=== PATIENT | male | born 1990 | race Caucasian/White ===

== ENCOUNTER 2018-04-10 14:14 | Inpatient (IN) | payer MEDICAID ==
[~2018-04-10] VITALS: Ht 177.8 cm; Wt 76.5 kg
[2018-04-10] MEDS ORDERED: HALOPERIDOL 5 MG TABLET PO PRN (18:00)
[2018-04-10] MEDS ORDERED: LORazepam 2 MG TABLET PO PRN (18:00)
[2018-04-10] MEDS ORDERED: ZOLPIDEM TARTRATE 10 MG TABLET PO PRN (18:00)
[2018-04-10 18:07] VITALS: BP 129/76
[2018-04-10 18:33] VITALS: BP 140/80
[2018-04-10] MEDS ORDERED: MAG HYDROX/AL HYDROX/SIMETH ES 30 ML SUSPENSION UDCUP PO PRN (21:15)
[2018-04-10] MEDS ORDERED: ACETAMINOPHEN 325 MG TABLET PO PRN (21:15)
[2018-04-10] MEDS ORDERED: MAGNESIUM HYDROXIDE SUSPENSION 30 ML UDCUP PO PRN (21:15)
[2018-04-10] MEDS ORDERED: PETROLATUM,WHITE 71 GM JELLY TP PRN (21:15)
[2018-04-10] MEDS ORDERED: LOPERAMIDE HCL 2 MG CAPSULE PO PRN (21:15)
[2018-04-10] MEDS ORDERED: CloNIDine HCL 0.1 MG TABLET PO PRN (21:15)
[2018-04-10] MEDS ORDERED: IBUPROFEN 400 MG TABLET PO PRN (21:15)
[2018-04-11 06:20] VITALS: BP 108/64
[2018-04-11 08:12] LABS: BASOPHILS % (AUTO) 0.5 % (0.0-2.0); EOSINOPHILS % (AUTO) 0.5 % (1.0-6.0); HEMATOCRIT 42.5 % (41-53); HEMOGLOBIN 14.7 g/dL (13.5-17.5); LYMPHOCYTES # (AUTO) 1.7 K/uL (1.0-4.8); LYMPHOCYTES % (AUTO) 27.7 % (22.0-44.0); MEAN CORPUSCULAR HGB CONC 34.7 G/dL (31.0-37.0); MEAN CORPUSCULAR VOLUME 89 fL (80-100); MONOCYTES # (AUTO) 0.5 K/uL (0.1-1.0); MONOCYTES % (AUTO) 8.3 % (2.0-9.0); NEUTROPHILS # (AUTO) 3.9 K/uL (1.8-7.7); PLATELET COUNT (AUTO) 231 K/uL (150-450); RED BLOOD CELL COUNT(AUTO) 4.76 MIL/uL (4.50-5.90); RED CELL DISTRIBUTION WIDTH 13.3 % (11.5-14.5)
[2018-04-11 08:42] LABS: HEMOGLOBIN A1C 5.3 % (4.5-6.2)
[2018-04-11 08:45] VITALS: BP 122/75
[2018-04-11 08:49] LABS: ALANINE AMINOTRANSFERASE 17 U/L (12-78); ALKALINE PHOSPHATASE 59 U/L (46-116); ANION GAP 8 mmol/L (8-16); ASPARTATE AMINOTRANSFERASE 21 U/L (15-37); BILIRUBIN,TOTAL 0.7 mg/dL (0.1-1.0); CALCIUM, TOTAL 8.9 mg/dL (8.8-10.5); CARBON DIOXIDE 31 mmol/L (22-29); CHLORIDE 104 mmol/L (98-107); CHOL/HDL RATIO 2.4 (4.2-7.3); CHOLESTEROL 115 mg/dL (131-200); CREATININE 0.89 mg/dL (0.60-1.30); FREE T4 (FREE THYROXINE) 1.11 ng/dL (0.76-1.46); GLOMERULAR FILTR. RATE CALC > 60 mL/min (>60); GLUCOSE,RANDOM 80 mg/dL (70-110); HDL CHOLESTEROL 48 mg/dL (40-60); LDL CHOL (CALC.) 54 mg/dL (0-130); POTASSIUM 3.8 mmol/L (3.5-5.1); SODIUM SERUM 143 mmol/L (136-145); TOTAL PROTEIN, SERUM 7.4 g/dL (6.4-8.2); TRIGLYCERIDES 63 mg/dL (15-150); UREA NITROGEN, BLOOD 10 mg/dL (7-18)
[2018-04-11] MEDS: NICOTINE 7 MG/24 HOUR PATCH TD SCH (09:15)
[2018-04-11 11:16] LABS: THYROID STIMULATING HORMONE 1.23 uIU/mL (0.36-3.74)
[2018-04-11 16:07] VITALS: BP 113/69
[2018-04-11] MEDS: ZIPRASIDONE HCL 40 MG CAPSULE PO SCH (16:53)
[2018-04-11] MEDS ORDERED: FLUO-191 PO (17:39)
[2018-04-11] MEDS ORDERED: ZIPR40CA2 PO (17:39)
[2018-04-12 06:49] VITALS: BP 108/63
[2018-04-12] MEDS: ZIPRASIDONE HCL 40 MG CAPSULE PO SCH (07:00)
[2018-04-12 08:35] VITALS: BP 108/70
[2018-04-12] MEDS: NICOTINE 7 MG/24 HOUR PATCH TD SCH ×2 (08:57→09:20)
[2018-04-12] MEDS: FLUoxetine HCL 20 MG CAPSULE PO SCH (09:00)
[2018-04-12] MEDS: ZIPRASIDONE HCL 20 MG CAPSULE PO SCH (16:40)
[2018-04-12] MEDS ORDERED: ZIPRASIDONE HCL 40 MG CAPSULE PO SCH (17:00)
[2018-04-12 19:22] VITALS: BP 112/81
[2018-04-13] MEDS: ZIPRASIDONE HCL 20 MG CAPSULE PO SCH ×2 (07:00→17:00)
[2018-04-13 07:18] VITALS: BP 118/83
[2018-04-13 08:25] VITALS: BP 117/69
[2018-04-13] MEDS: FLUoxetine HCL 20 MG CAPSULE PO SCH ×2 (08:55→09:00)
[2018-04-13] MEDS: NICOTINE 7 MG/24 HOUR PATCH TD SCH (09:00)
[2018-04-13 16:11] VITALS: BP 122/66
[2018-04-14 06:05] VITALS: BP 116/70
[2018-04-14] MEDS: ZIPRASIDONE HCL 20 MG CAPSULE PO SCH ×2 (06:44→17:00)
[2018-04-14 08:37] VITALS: BP 125/66
[2018-04-14] MEDS: FLUoxetine HCL 20 MG CAPSULE PO SCH ×2 (09:00→09:09)
[2018-04-14] MEDS: NICOTINE 7 MG/24 HOUR PATCH TD SCH (09:09)
[2018-04-14 16:32] VITALS: BP 106/54
[2018-04-15 05:56] VITALS: BP 101/64
[2018-04-15] MEDS: ZIPRASIDONE HCL 20 MG CAPSULE PO SCH ×2 (07:03→17:00)
[2018-04-15 08:42] VITALS: BP 116/75
[2018-04-15] MEDS: NICOTINE 7 MG/24 HOUR PATCH TD SCH (08:55)
[2018-04-15] MEDS: FLUoxetine HCL 20 MG CAPSULE PO SCH (08:55)
[2018-04-15 16:38] VITALS: BP 120/74
[2018-04-16 00:49] VITALS: BP 121/68
[2018-04-16] MEDS: ZIPRASIDONE HCL 20 MG CAPSULE PO SCH ×2 (07:02→17:15)
[2018-04-16] MEDS: NICOTINE 7 MG/24 HOUR PATCH TD SCH (09:00)
[2018-04-16] MEDS: FLUoxetine HCL 20 MG CAPSULE PO SCH (09:00)
[2018-04-17 06:39] VITALS: BP 108/64
[2018-04-17] MEDS: ZIPRASIDONE HCL 20 MG CAPSULE PO SCH ×2 (07:00→07:11)
[2018-04-17 08:16] VITALS: BP 105/61
[2018-04-17] MEDS: NICOTINE 7 MG/24 HOUR PATCH TD SCH (10:13)
[2018-04-17] MEDS: FLUoxetine HCL 20 MG CAPSULE PO SCH (10:14)
[2018-04-17 16:52] VITALS: BP 121/65
[2018-04-18 00:22] VITALS: BP 117/64
[2018-04-18] MEDS: ZIPRASIDONE HCL 20 MG CAPSULE PO SCH (06:02)
[2018-04-18 08:26] VITALS: BP 107/67
[2018-04-18] MEDS: FLUoxetine HCL 20 MG CAPSULE PO SCH (09:08)
[2018-04-18] MEDS: NICOTINE 7 MG/24 HOUR PATCH TD SCH (09:09)
[2018-04-18] MEDS ORDERED: FLUO-191 PO (12:14)
[2018-04-18] MEDS ORDERED: ZIPR20CA2 PO (12:14)
== END 2018-04-18 13:15 | disposition home or self-care (01) | DRG 750 ==
LOC: B2S 17:50
PROVIDERS: ADMIT Psychiatry & Neurology Psychiatry; ATTEND Psychiatry & Neurology Psychiatry
PROC: 3E0234Z Introduction of Serum, Toxoid and Vaccine into Muscle, Percutaneous Approach (ICD-10-PCS; principal; 2018-04-10)
DX: F25.1 Schizoaffective disorder, depressive type (principal); Z59.0 Homelessness; F12.90 Cannabis use, unspecified, uncomplicated; F41.9 Anxiety disorder, unspecified; G47.00 Insomnia, unspecified; K59.00 Constipation, unspecified; Z91.5 Personal history of self-harm; Z23 Encounter for immunization
CPT/HCPCS: 83036; 84439; 84443; 90686

== ENCOUNTER 2018-10-27 20:43 | Emergency (ER) | payer MEDICAID ==
[~2018-10-27] VITALS: Ht 175.3 cm; Wt 86.4 kg
[~2018-10-27 20:43] MED LIST: FLUO-191 PO; ZIPR20CA2 PO
[2018-10-27 21:21] LABS: BASOPHILS % (AUTO) 0.6 % (0.0-2.0); EOSINOPHILS % (AUTO) 0.8 % (1.0-6.0); HEMATOCRIT 45.3 % (41-53); HEMOGLOBIN 15.2 g/dL (13.5-17.5); LYMPHOCYTES # (AUTO) 2.3 K/uL (1.0-4.8); LYMPHOCYTES % (AUTO) 28.8 % (22.0-44.0); MEAN CORPUSCULAR HEMOGLOBIN 31.3 pg (26.0-34.0); MEAN CORPUSCULAR HGB CONC 33.6 G/dL (31.0-37.0); MEAN CORPUSCULAR VOLUME 93 fL (80-100); MONOCYTES # (AUTO) 0.6 K/uL (0.1-1.0); NEUTROPHILS # (AUTO) 4.8 K/uL (1.8-7.7); NEUTROPHILS % (AUTO) 61.8 % (40.0-70.0); PLATELET COUNT (AUTO) 231 K/uL (150-450); RED BLOOD CELL COUNT(AUTO) 4.86 MIL/uL (4.50-5.90)
[2018-10-27 21:36] LABS: ANION GAP 11 mmol/L (8-16); CALCIUM, TOTAL 9.5 mg/dL (8.8-10.5); CARBON DIOXIDE 27 mmol/L (22-29); CHLORIDE 102 mmol/L (98-107); CREATININE 0.91 mg/dL (0.60-1.30); GLOMERULAR FILTR. RATE CALC > 60 mL/min (>60); GLUCOSE,RANDOM 88 mg/dL (70-110); POTASSIUM 3.8 mmol/L (3.5-5.1); SODIUM SERUM 140 mmol/L (136-145); UREA NITROGEN, BLOOD 12 mg/dL (7-18)
[2018-10-27 21:42] LABS: ALANINE AMINOTRANSFERASE 58 U/L (12-78); ALBUMIN 4.5 g/dL (3.4-5.0); ALKALINE PHOSPHATASE 67 U/L (46-116); ASPARTATE AMINOTRANSFERASE 227 U/L (15-37); BILIRUBIN,TOTAL 0.5 mg/dL (0.1-1.0); TOTAL PROTEIN, SERUM 7.6 g/dL (6.4-8.2)
[2018-10-27] MEDS ORDERED: ARIPiprazole 15 MG TABLET PO ONE (22:00)
[2018-10-27 22:31] LABS: AMPHET/METH SCREEN,URINE NEGATIVE (NEGATIVE); BARBITURATE SCREEN, URINE NEGATIVE (NEGATIVE); BENZODIAZEPINES SCREEN,URINE NEGATIVE (NEGATIVE); CANNABINOID SCREEN,URINE POSITIVE (NEGATIVE); COCAINE SCREEN,URINE NEGATIVE (NEGATIVE); METHADONE SCREEN, URINE NEGATIVE (NEGATIVE); OPIATE SCREEN,URINE NEGATIVE (NEGATIVE); PHENCYCLIDINE SCREEN,URINE NEGATIVE (NEGATIVE)
[2018-10-27 23:00] VITALS: BP 120/64
== END 2018-10-27 23:19 | disposition home or self-care (01) ==
LOC: EMS 20:44
DX: F20.0 Paranoid schizophrenia (principal); F17.210 Nicotine dependence, cigarettes, uncomplicated
CPT/HCPCS: 36415; 80053; 80307; 85025; 99284; G0480